=== PATIENT | male | born 1945 | race Caucasian/White ===

== ENCOUNTER 2020-06-17 13:04 | Emergency (ER) | payer SELFPAY ==
[~2020-06-17] VITALS: Ht 177.8 cm; Wt 65.9 kg
[2020-06-17 13:09] VITALS: Ht 177.8 cm; Wt 65.9 kg
[2020-06-17 13:41] LABS: BASOPHILS 0.6 % (0-2); EOSINOPHILS 1.5 % (0-7); HEMATOCRIT 44.7 % (42.0-54.0); HEMOGLOBIN 14.7 g/dL (13.5-17.5); IMMATURE GRANULOCYTES 0.2 % (0-5); LYMPHOCYTE ABS# 1.37 10x3/uL (1.32-3.57); LYMPHOCYTES 16.9 % (15-50); MCH 30.1 pg (26.0-34.0); MCHC 32.9 g/dL (31.0-37.0); MCV 91.4 fL (80.0-100.0); MEAN PLATELET VOLUME 12.8 fL (7.4-10.4); MONOCYTES 8.3 % (2-11); NEUTROPHIL ABS# 5.89 10x3/uL (1.78-5.38); NEUTROPHILS 72.5 % (40-80); PLATELET COUNT 175 10x3/uL (130-400); RBC 4.89 10x6/uL (4.20-6.10); RDW 12.8 % (11.5-14.5); WBC 8.1 10x3/uL (4.8-10.8)
[2020-06-17 13:42] LABS: CALC OSMOLALITY 275 mosm/kg (275-300); CALCIUM 9.5 mg/dL (8.5-10.1); CARBON DIOXIDE 29.4 mmol/L (21.0-32.0); CHLORIDE - SERUM 101 mmol/L (98-107); CREATININE - SERUM 0.9 mg/dL (0.6-1.3); GLUCOSE 86 mg/dL (74-106); POTASSIUM - SERUM 3.7 mmol/L (3.5-5.1); SODIUM 139 mmol/L (136-145); UREA NITROGEN 9 mg/dL (7-18); eGFR NON AFRICAN AMERICAN 88 mL/min (90-120)
[2020-06-17 13:48] LABS: ALBUMIN 3.8 g/dL (3.4-5.0); ALKALINE PHOSPHATASE 63 U/L (30-120); ALT (SGPT) 21 U/L (10-68); BILIRUBIN - TOTAL 0.67 mg/dL (0.2-1.3); PROTEIN - SERUM 7.4 g/dL (6.4-8.2)
[2020-06-17 14:12] LABS: APTT 31.2 SECONDS (22.8-39.4); INR 1.06 (0.85-1.17); PROTIME 12.7 SECONDS (11.6-15.0)
[2020-06-17 14:19] LABS: BILIRUBIN NEGATIVE (NEGATIVE); KETONE NEGATIVE (NEGATIVE); NITRITE NEGATIVE (NEGATIVE); SQUAMOUS EPITHELIAL NONE SEEN HPF (0-4); UROBILINOGEN NORMAL mg/dL (< 2); WHITE CELLS - URINE NONE SEEN HPF (0-1)
[2020-06-17 15:19] VITALS: BP 130/79
== END 2020-06-17 15:20 | disposition home or self-care (01) ==
LOC: D.ER 13:04
PROVIDERS: Emergency Medicine
DX: R31.9 Hematuria, unspecified (principal); R97.20 Elevated prostate specific antigen [PSA]; I10 Essential (primary) hypertension